=== PATIENT | male | born 1970 | race American Indian/Alaskan Native ===

== ENCOUNTER 2019-04-23 12:50 | Emergency (ER) | payer SELFPAY ==
[2019-04-23] MEDS ORDERED: BENADRYL IV ONE (13:00)
[2019-04-23] MEDS ORDERED: PEPCID IV ONE (13:00)
[2019-04-23] MEDS ORDERED: DECADRON IV ONE (13:00)
[2019-04-23] MEDS ORDERED: NACL 0.9% 1000 ML 1,000 ML IV ONE (13:00)
--- NOTE | 2019-04-23 13:00 | Emergency Department Report ---
Blank Doc - Documentation Documentation: 48-year-old male that presents with hives and itching. No angioedema present. This initial assessment/diagnostic orders/clinical plan/treatment(s) is/are subject to change based on patient's health status, clinical progression and re- assessment by fellow clinical providers in the ED. Further treatment and workup at subsequent clinical providers discretion. Patient/guardians urged not to elope from the ED as their condition may be serious if not clinically assessed and managed. Initial orders include: 1- Patient sent to [facility] for further evaluation and treatment 2- IV treatment
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
[2019-04-23 15:01] LABS: Basophils % (Auto) 0.3 % (0.0-1.8); Eosinophils % (Auto) 0.6 % (0.0-4.3); Hematocrit 43.9 % (35.5-45.6); Hemoglobin 14.9 gm/dl (11.8-15.2); Lymphocytes # (Auto) 1.9 K/mm3 (1.2-5.4); Lymphocytes % (Auto) 25.9 % (13.4-35.0); Mean Corpuscular HGB Conc 34 % (32-34); Mean Corpuscular Volume 91 fl (84-94); Monocytes # (Auto) 0.4 K/mm3 (0.0-0.8); Monocytes % (Auto) 5.5 % (0.0-7.3); Platelet Count 224 K/mm3 (140-440); Red Cell Distribution Width 15.1 % (13.2-15.2)
[2019-04-23 15:22] LABS: BUN/Creatinine Ratio 8; Blood Urea Nitrogen 9 mg/dL (9-20); Calcium 8.2 mg/dL (8.4-10.2); Hemolysis Index 24
[2019-04-23 16:42] VITALS: BP 116/76
== END 2019-04-23 16:40 | disposition home or self-care (01) ==
LOC: ED 12:50
DX: T78.40XA Allergy, unspecified, initial encounter (principal); Z79.899 Other long term (current) drug therapy; X58.XXXA Exposure to other specified factors, initial encounter; Y93.89 Activity, other specified; Y92.89 Other specified places as the place of occurrence of the external cause; Y99.8 Other external cause status
CPT/HCPCS: 36415; 80048; 85025; 96374; 96375; 99283; J1100; J1200; J7030

== ENCOUNTER 2019-05-20 16:12 | Emergency (ER) | payer BC ==
--- NOTE | 2019-05-20 17:50 | Event Note ---
ED Screening Note Date of service: 05/20/19 Time: 17:48 ED Screening Note: 48 y/o male comes in for allergic reaction about 330pm today. Took Benadryl about 345pm which has helped some. Patient has had multiple allergic reaction but has never followed up. This initial assessment/diagnostic orders/clinical plan/treatment(s) is/are subject to change based on patients health status, clinical progression and re- assessment by fellow clinical providers in the ED. Further treatment and workup at subsequent clinical providers discretion. Patient/guardian urged not to elope from the ED as their condition may be serious if not clinically assessed and managed. Initial orders include:
[2019-05-20] MEDS ORDERED: dexAMETHasone 4 MG/ML VIAL IM ONE (18:53)
[2019-05-20] MEDS ORDERED: diphenhydrAMINE 25 MG CAP PO ONE (18:53)
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
[2019-05-20 20:40] VITALS: BP 125/90
== END 2019-05-20 21:01 | disposition home or self-care (01) ==
LOC: ED 16:12
DX: R21 Rash and other nonspecific skin eruption (principal); L29.9 Pruritus, unspecified; T78.1XXA Other adverse food reactions, not elsewhere classified, initial encounter; F17.200 Nicotine dependence, unspecified, uncomplicated; F12.10 Cannabis abuse, uncomplicated; Z79.899 Other long term (current) drug therapy; X58.XXXA Exposure to other specified factors, initial encounter; Y93.89 Activity, other specified; Y92.89 Other specified places as the place of occurrence of the external cause; Y99.8 Other external cause status
CPT/HCPCS: 96372; 99282; J1100